=== PATIENT | male | born 1990 ===

== ENCOUNTER 2020-02-19 09:57 | Emergency (ER) | payer OTHER ==
[~2020-02-19] VITALS: Ht 177.8 cm; Wt 99.8 kg
== END 2020-02-19 11:11 | disposition home or self-care (01) ==
LOC: ER 09:57
DX: S62.393A Other fracture of third metacarpal bone, left hand, initial encounter for closed fracture (principal); S60.212A Contusion of left wrist, initial encounter; W23.0XXA Caught, crushed, jammed, or pinched between moving objects, initial encounter; Y93.89 Activity, other specified; Y92.832 Beach as the place of occurrence of the external cause; Y99.8 Other external cause status